=== PATIENT | female | born 1955 | race African-American/Black ===

== ENCOUNTER 2018-02-12 10:24 | Day surgery (SDC) | payer OTHER ==
[~2018-02-12 10:24] MED LIST: PROPOFOL INJ 200 MG/20 ML VIAL IV ONE
[2018-02-12 12:23] VITALS: BP 118/68
--- NOTE | 2018-02-12 13:28 | Operative Report ---
Operative Report DATE OF SURGERY: 02/12/18 Operative Report: The risks, benefits and alternatives of the procedure including risks of bleeding, perforation requiring surgery are explained to the patient in detail. The patient is brought back to the endoscopy suite and placed in a left,. Timeout was called. Propofol medications administered. A rectal examination is done for the scope is inserted into the patient's rectum. The scope is then carefully advanced all the way to the cecum. The cecum was identified by the usual anatomical landmarks of the appendiceal office and the ileocecal valve. Prep is good. Photodocumentation is obtained. The scope is then sequentially pulled back via the various segments of the colon including the ascending colon , hepatic flexure, transverse colon, splenic flexure, descending colon and finally into the rectosigmoid portions of the colon. Retroflexion maneuver is performed. PREOPERATIVE DIAGNOSIS: Colorectal cancer screening POSTOPERATIVE DIAGNOSIS: Left sidecolon Inflammation status post biopsy OPERATION: Colonoscopy with biopsy SURGEON: AIMEE BABCOCK ANESTHESIA: LMAC TISSUE REMOVED OR ALTERED: As noted above. COMPLICATIONS: None. ESTIMATED BLOOD LOSS: None. INTRAOPERATIVE FINDINGS: As noted above. PROCEDURE: Patient tolerated the procedure well. No immediate postprocedure complications are noted. Patient discharged in good condition. Discharge date 02/12/2018. Discharge diet: Regular. Discharge activity: Regular. 2-3 week follow-up to discuss findings. Patient is instructed call the office or proceed to the emergency room should there be any further problems or questions. We will went pathology.
== END 2018-02-12 12:10 | disposition home or self-care (01) ==
LOC: END 10:24
PROVIDERS: ATTEND Internal Medicine Gastroenterology
DX: Z12.11 Encounter for screening for malignant neoplasm of colon (principal); K52.9 Noninfective gastroenteritis and colitis, unspecified; Z80.0 Family history of malignant neoplasm of digestive organs
CPT/HCPCS: 45380; 88305 ×2; J2704; 811

== ENCOUNTER → 2018-02-21 | Outpatient (CLI) | payer OTHER ==
--- NOTE | 2018-02-21 16:24 | RADIOLOGY REPORT (SQ) ---
EXAM DESCRIPTION: U/S RETROPERITON (RENAL/AORTA) COMPLETED DATE/TIME: 02/21/2018 3:54 pm REASON FOR STUDY: N19 UNSPECIFIED KIDNEY FAILURE N19 UNSPECIFIED KIDNEY FAILURE COMPARISON: None. TECHNIQUE: Dynamic and static grayscale images acquired of the kidneys and bladder and recorded on P ACS. Additional selected color Doppler and spectral images recorded. LIMITATIONS: Limited exam due to the patient's obesity. FINDINGS: RIGHT KIDNEY: Normal size. Normal echogenicity. No solid or suspicious masses. No hydronep hrosis. No calcifications. LEFT KIDNEY: Normal size. Normal echogenicity. No solid or suspicious masses. No hydronephrosis. No calcifications. BLADDER: No masses. OTHER FINDINGS: No other significant finding. IMPRESSION: NORMAL RENAL AND BLADDER ULTRASOUND. TECHNICAL DOCUMENTATION: JOB ID: [id number] [employer]- All Rights Reserved Reading location - IP/workstation name: [email or web address]
== END ==
LOC: RAD 14:53
PROVIDERS: ATTEND Internal Medicine Nephrology
DX: N19 Unspecified kidney failure (principal)
CPT/HCPCS: 76770